=== PATIENT | female | born 1960 | race Caucasian/White ===

== ENCOUNTER 2016-05-22 09:19 | Emergency (ER) | payer BC ==
[2016-05-22 09:52] VITALS: BP 131/52
--- NOTE | 2016-05-22 10:24 | UC ---
Respiratory Complaint HPI - HPI Summary HPI Summary: Patient has had sinus congestion for the past month, she continues to have sinus pressure and now her chest feels congested and she has a cough - History of Current Complaint Chief Complaint: UCRespiratory Stated Complaint: FLU SYMPTOMS Time Seen by Provider: 05/22/16 09:43 Hx Obtained From: Patient Hx Last Menstrual Period: 01/23/13 ?: No Onset/Duration: Sudden Onset, Lasting Weeks Timing: Constant Severity Initially: Mild Severity Currently: Moderate Character: Cough: Productive Aggravating Factors: Exertion, Deep Breaths, Recumbent Position Alleviating Factors: Nothing Associated Signs And Symptoms: Positive: Fever, Chills, Wheezing, URI, Nasal Congestion, Sinus Discomfort - Risk Factors Pulmonary Embolism Risk Factors: Negative Cardiac Risk Factors: Negative Pseudomonas Risk Factors: Negative Tuberculosis Risk Factors: Negative - Allergies/Home Medications Allergies/Adverse Reactions: Allergies Allergy/AdvReac Type Severity Reaction Status Date / Time Iodine Allergy Severe Anaphylatic Verified 05/22/16 09:42 Shock Shrimp Flavor Allergy Severe Hives/Diff. Verified 05/22/16 09:42 Breathing/I tching Home Medications: Home Medications Calcium Carbonate-Cholecalcife [Calcium 500 +D 500-400 mg-Unit] 1 tab PO DAILY 05/22/16 [History Confirmed 05/22/16] Cyanocobalamin TAB* [Vitamin B12 TAB*] 500 mcg PO DAILY 05/22/16 [History Confirmed 05/22/16] Docusate CAP* [Colace Cap*] 100 mg PO BID 05/22/16 [History Confirmed 05/22/16] PMH/Surg Hx/FS Hx/Imm Hx Previously Healthy: Yes Endocrine History Of: Reports: Diabetes Cardiovascular History Of: Reports: Hypertension Respiratory History Of: Reports: Asthma Psychological History Of: Reports: Depression - Surgical History Surgical History: Yes Surgery Procedure, Year, and Place: Tonsillectomy. X2. bariatric surgery- - Family History Known Family History: Positive: Cardiac Disease, Hypertension - Social History Alcohol Use: None Substance Use Type: None Smoking Status (MU): Former Smoker When Did the Patient Quit Smoking/Using Tobacco: 04/26/2004 - Immunization History Most Recent Tetanus Shot: WITHIN 7 YEARS Review of Systems Constitutional: Fever, Chills, Fatigue Skin: Negative Eyes: Negative ENT: Sore Throat, Ear Ache, Nasal Discharge Respiratory: Shortness Of Breath, Cough Cardiovascular: Negative Gastrointestinal: Negative Genitourinary: Negative Motor: Negative Neurovascular: Negative Musculoskeletal: Negative Neurological: Negative Psychological: Negative All Other Systems Reviewed And Are Negative: Yes Physical Exam Triage Information Reviewed: Yes Appearance: Well-Nourished, Ill-Appearing, Pain Distress Vital Signs: Initial Vital Signs Temp 97.5 F 05/22/16 09:48 Pulse 73 05/22/16 09:48 Resp 20 05/22/16 09:48 BP 131/52 05/22/16 09:48 Pulse Ox 96 05/22/16 09:48 Vital Signs Reviewed: Yes Eye Exam: Normal Eyes: Positive: Conjunctiva Clear ENT: Positive: Pharyngeal erythema, Nasal congestion, Nasal drainage, TM bulging Dental Exam: Normal Neck exam: Normal Neck: Positive: Supple, Nontender, No Lymphadenopathy Respiratory: Positive: Chest non-tender, No respiratory distress, No accessory muscle use, Decreased breath sounds, Wheezing, Inspiration Cardiovascular Exam: Normal Cardiovascular: Positive: RRR, No Murmur, Pulses Normal Abdominal Exam: Normal Abdomen Description: Positive: Nontender, No Organomegaly, Soft Bowel Sounds: Positive: Present Musculoskeletal Exam: Normal Musculoskeletal: Positive: Strength Intact, ROM Intact, No Edema Neurological Exam: Normal Neurological: Positive: Alert, Muscle Tone Normal Psychological Exam: Normal Skin Exam: Normal UC Diagnostic Evaluation - Laboratory O2 Sat by Pulse Oximetry: 96 Respiratory Course/Dx - Course Course Of Treatment: hx obtained, exam performed, meds reviewed rapid flu obtained, treated for sinusitis and bronchitis - Differential Dx/Diagnosis Differential Diagnosis/HQI/PQRI: Aspiration, Asthma, Bronchitis, Influenza, Laryngitis, Sinusitis Provider Diagnoses: sinusitis. bronchitis Discharge - Discharge Plan Condition: Stable Disposition: HOME Patient Education Materials: Sinusitis (ED) Additional Instructions: 1. take the medication as prescribed. 2. Increase fluid intake and get rest 3. Follow up with any worsening symtpoms.
== END 2016-05-22 11:01 | disposition home or self-care (01) ==
LOC: UCCORT 09:19
DX: J32.9 Chronic sinusitis, unspecified (principal); J40 Bronchitis, not specified as acute or chronic; E11.9 Type 2 diabetes mellitus without complications; I10 Essential (primary) hypertension; F32.9 Major depressive disorder, single episode, unspecified; Z98.84 Bariatric surgery status; Z87.891 Personal history of nicotine dependence
CPT/HCPCS: 87502; 99212; G0463

== ENCOUNTER 2017-08-26 17:43 | Emergency (ER) | payer BC ==
[2017-08-26 18:05] VITALS: BP 125/63
--- NOTE | 2017-08-26 18:32 | UC ---
UC General HPI - HPI Summary HPI Summary: Patient presents complaining of episodic "stomach pains for the past 3-4 days in her left side. She describes the pain as sharp. She states that she's had prior history of kidney stones and felt that this might be similar. Nothing specifically makes her pain any better or any worse. She denies any associated nausea, vomiting, diarrhea or fever. She denies any dysuria or hematuria. Past surgical history includes tubal ligation and gastric bypass. Gastric bypass was done 3 years ago and [place]. - History of Current Complaint Chief Complaint: UCGU Stated Complaint: LEFT SIDE ABD PAIN Time Seen by Provider: 08/26/17 18:19 Hx Obtained From: Patient, Family/[employer] Hx Last Menstrual Period: 04/06 Pain Intensity: 7 Associated Signs & Symptoms: Positive: Abdominal Pain. Negative: Diarrhea, Dysuria, Fever, Nausea, Vomiting - Allergy/Home Medications Allergies/Adverse Reactions: Allergies Allergy/AdvReac Type Severity Reaction Status Date / Time Iodinated Contrast- Oral and Allergy Hives/Diff. Verified 08/26/17 17:59 IV Dye Breathing/I tching iodine Allergy Hives/Diff. Verified 08/26/17 17:59 Breathing/I tching NSAIDS (Non-Steroidal Allergy GI Upset Verified 08/26/17 17:59 Anti-Inflamma shrimp Allergy Hives/Diff. Verified 08/26/17 17:59 Breathing/I tching Home Medications: Home Medications Metformin HCl [Metformin HCl ER] 1,000 mg PO BID 08/26/17 [History Confirmed 12/04] Sitagliptin Phosphate [Januvia] 25 mg PO DAILY 08/26/17 [History Confirmed 08/26] PMH/Surg Hx/FS Hx/Imm Hx Endocrine History: Diabetes Cardiovascular History: Hypertension - Surgical History Surgical History: Yes Surgery Procedure, Year, and Place: Tonsillectomy. X2. bariatric surgery- [facility] - Family History Known Family History: Positive: Cardiac Disease, Hypertension - Social History Lives: With Family Alcohol Use: None Substance Use Type: None Smoking Status (MU): Former Smoker When Did the Patient Quit Smoking/Using Tobacco: 04/26/2004 - Immunization History Most Recent Tetanus Shot: WITHIN 7 YEARS Vaccination Up to Date: Yes Review of Systems Constitutional: Negative Skin: Negative Eyes: Negative ENT: Negative Respiratory: Negative Cardiovascular: Negative Gastrointestinal: Abdominal Pain Genitourinary: Negative Motor: Negative Neurovascular: Negative Musculoskeletal: Negative Neurological: Negative Psychological: Negative Is Patient Immunocompromised?: No All Other Systems Reviewed And Are Negative: Yes Physical Exam Triage Information Reviewed: Yes Appearance: Well-Appearing Vital Signs: Initial Vital Signs Temp 97.5 F 08/26/17 17:53 Pulse 59 08/26/17 17:53 Resp 15 08/26/17 17:53 BP 125/63 08/26/17 17:53 Pulse Ox 97 08/26/17 17:53 Vital Signs Reviewed: Yes Eyes: Positive: Conjunctiva Clear ENT: Positive: Normal ENT inspection Neck: Positive: Supple, Nontender, No Lymphadenopathy Respiratory: Positive: Lungs clear, Normal breath sounds Cardiovascular: Positive: RRR, No Murmur Abdomen Description: Positive: Other: - Postop scars appreciated. Hypoactive bowel sounds. Soft. Patient is exquisitely tender over her left mid abdomen over postop scar with guarding and rebound. No overt hernia, mass, hepatosplenomegaly or CVA tenderness. Musculoskeletal: Positive: ROM Intact Neurological: Positive: Alert Psychological: Positive: Age Appropriate Behavior Skin Exam: Normal Diagnostics - Laboratory Diagnostic Studies Completed/Ordered: hcg=neg. u/a=trace leukocytes, nitrites and glucose. culture pending. Course/Dx - Course Course Of Treatment: not c/w uti. requires ER evaluation. differential includes renal colic, diverticular/bowel pathology, hernia given pain over scar. pt agrees to transfer and driving pt from here. Report called to Dr Mckenzie at [facility] ER. advised of 3-4 day hx L sided abdominal pain and very tender on exam. coming via car. - Differential Dx - Multi-Symptom Provider Diagnoses: L sided abdominal pain Discharge - Sign-Out/Discharge Documenting (check all that apply): Patient Departure - Discharge Plan Condition: Stable Disposition: TRANS HIGHER LVL OF CARE FAC Referrals: Anna Lee MD [Primary Care Provider] - Additional Instructions: LEAVE HERE AND GO DIRECTLY TO THE [facility] ER DISCUSSED. DO NOT EAT OR DRINK. - Billing Disposition and Condition Condition: STABLE Disposition: Trans Higher Lvl of Care Fac
== END 2017-08-26 18:43 | disposition short-term general hospital (02) ==
LOC: UCCORT 17:43
DX: R10.9 Unspecified abdominal pain (principal); Z32.02 Encounter for pregnancy test, result negative; Z87.442 Personal history of urinary calculi; E11.9 Type 2 diabetes mellitus without complications; Z79.84 Long term (current) use of oral hypoglycemic drugs; I10 Essential (primary) hypertension; Z98.84 Bariatric surgery status; Z88.8 Allergy status to other drugs, medicaments and biological substances; Z88.6 Allergy status to analgesic agent; Z88.3 Allergy status to other anti-infective agents; Z91.041 Radiographic dye allergy status; Z91.013 Allergy to seafood; Z82.49 Family history of ischemic heart disease and other diseases of the circulatory system; Z87.891 Personal history of nicotine dependence
CPT/HCPCS: 81003; 84702; 87077; 87086; 87186; 99212; G0463

== ENCOUNTER 2018-11-19 12:21 | Observation (INO) | payer OTHER, BC ==
--- NOTE | 2018-11-19 12:45 | ED ---
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 Patient states that she was sitting at the computer at work typing up notes when everything started to "melt," and became "wormy, wavey, cloudy, fuzzy." Patient states she stood up, and almost fell. Patient states that she had her coworker measure her blood sugar which was normal. Patient states that later, she was looking at some clouds painted on the wall and she thought that they were moving. Patient was referred to the ED by Dr. Parmar for evaluation of possible stroke. Patient denies seeing a curtain moving across her vision, visual hallucinations. Patient states she sees dark spots in her vision and cannot see out of her peripheral vision. She denies slurred speech, facial droop. Patient reports dizziness which is aggravated by sitting up. Patient states that the room is not spinning, that she feels as if she is spinning, and that she doesn't feel like she will pass out. She reports headache located in the back of her head, initially rated 2/10 in severity, with onset while she was sitting in the ambulance. Patient states that when she lay flat, the headache moved to her temples. Patient states that the headache has now resolved , she has no pain, rated 0/10 in severity currently. Patient denies pain currently. The patient rates the pain 0/10 in severity. Patient denies chest pain, shortness of breath, ear ache, sore throat, nausea. Symptoms aggravated by sitting up. Symptoms alleviated by nothing. Patient states she has hx migraine but her symptoms today are not similar to a migraine. Patient states her migraines usually are severe, happens randomly, described as pressure in her temples and behind her eyes. Patient states she usually take Excedrin, ibuprofen, Tylenol, and sleeps it off. Patient states she has never been to the ED or seen a neurologist for her migraines. Denies PMHX atrial fibrillation, artery blockage, TIA, CVA, AK, angina, vertigo. No recent upper respiratory infections. Patient states she is not taking aspirin. Denies Fhx aneurysm. FHx: aunt in bathroom from stroke, migraines in aunts and mother. Vital signs while in room: HR 60 bpm, BP 113/57, O2 sat 96% Home Medications Medication Instructions Recorded Confirmed Type Citalopram TAB* [Celexa TAB*] 40 mg PO DAILY 01/01/12 11/19/18 History Multivitamin [Multivitamins] 1 cap PO DAILY 02/21/12 11/19/18 History Pregabalin [Lyrica] 50 - 100 mg PO TID 07/28/12 11/19/18 History Cyanocobalamin TAB* [Vitamin B12 500 mcg PO DAILY 05/22/16 11/19/18 History TAB*] Metformin HCl [Metformin HCl ER] 1,000 mg PO BID 08/26/17 11/19/18 History Albuterol HFA INHALER* [Ventolin 2 puff INH Q6H PRN 11/19/18 11/19/18 History HFA Inhaler*] Albuterol inh POWDER (NF) [Proair 2 puff INH QID 11/19/18 11/19/18 History Respiclick] Ascorbic Acid TAB* [Vitamin C 100 mg PO DAILY 11/19/18 11/19/18 History TAB*] Atorvastatin* [Lipitor*] 20 mg PO DAILY 11/19/18 11/19/18 History Biotin 10 mg PO DAILY 11/19/18 11/19/18 History Calcium Carbonate [Calcium] 1,500 mg PO DAILY 11/19/18 11/19/18 History Docusate CAP* [Colace Cap*] 100 mg PO DAILY 11/19/18 11/19/18 History Dulaglutide (NF) [Trulicity (NF)] 0.75 mg SUBCUT WEEKLY 11/19/18 11/19/18 History Empaglifozin (NF) [Jardiance (Nf)] 25 mg PO DAILY 11/19/18 11/19/18 History Ferrous Sulfate TAB* 325 mg PO DAILY 11/19/18 11/19/18 History Lisinopril TAB* [Prinivil TAB*] 5 mg PO DAILY 11/19/18 11/19/18 History Omeprazole CAP (NF) [Prilosec CAP* 20 mg PO BID 11/19/18 11/19/18 History 20 MG] Vitamin E CAP* 1,000 unit PO BEDTIME 11/19/18 11/19/18 History buPROPion SR TAB* [Wellbutrin SR 100 mg PO DAILY 11/19/18 11/19/18 History TAB*] - History of Current Complaint Stated Complaint: DIZZINESS/VISION PROBLEMS PER EMS Hx Obtained From: Patient, EMS, Other: - Dr. Parmar Onset/Duration: Sudden Onset, Started hours ago - 10:30 today 11/19/18, Still Present Timing: Constant Onset Severity: Mild - in ambulance, rated a 2, not with onset of dizziness and visual sxs Current Severity: None Pain Scale Used: 0-10 Numeric Character: Lightheaded, Dizzy, Visual Changes Aggravating: Position Change/Supine to Erect Alleviating: Nothing Associated Signs and Symptoms: Positive: Visual Changes, Headache, Dizziness, Lightheadness TPA Considered: No - low NIH - Allergy/Home Medications Allergies/Adverse Reactions: Allergies Allergy/AdvReac Type Severity Reaction Status Date / Time Iodinated Contrast Media Allergy Hives/Diff. Verified 11/19/18 12:46 [Iodinated Contrast- Oral Breathing/I and IV Dye] tching iodine Allergy Hives/Diff. Verified 11/19/18 12:46 Breathing/I tching NSAIDS (Non-Steroidal Allergy GI Upset Verified 11/19/18 12:46 Anti-Inflamma shrimp Allergy Hives/Diff. Verified 11/19/18 12:46 Breathing/I tching Home Medications: Home Medications Ascorbic Acid TAB* [Vitamin C TAB*] 100 mg PO DAILY 11/19/18 [History Confirmed 11/19/18] Atorvastatin* [Lipitor 20 MG*] 20 mg PO DAILY 11/19/18 [History Confirmed ] Calcium Carbonate [Calcium] 1,500 mg PO DAILY 11/19/18 [History Confirmed ] Docusate CAP* [Colace Cap*] 100 mg PO DAILY 11/19/18 [History Confirmed 11/19/18 ] Dulaglutide (NF) [Trulicity (NF)] 0.75 mg SUBCUT WEEKLY 11/19/18 [History Confirmed 11/19/18] Empaglifozin (NF) [Jardiance (Nf)] 25 mg PO DAILY 11/19/18 [History Confirmed ] Ferrous Sulfate TAB* 325 mg PO DAILY 11/19/18 [History Confirmed 11/19/18] Omeprazole CAP (NF) [Prilosec CAP* 20 MG] 20 mg PO BID 11/19/18 [History Confirmed 11/19/18] Vitamin E CAP* 1,000 unit PO BEDTIME 11/19/18 [History Confirmed 11/19/18] buPROPion SR TAB* [Wellbutrin SR TAB*] 100 mg PO DAILY 11/19/18 [History Confirmed 11/19/18] PMH/Surg Hx/FS Hx/Imm Hx Previously Healthy: No Endocrine/Hematology History: Reports: Hx Diabetes - TYPE 2, Hx Anemia Cardiovascular History: Reports: Hx Hypercholesterolemia, Hx Hypertension Respiratory History: Reports: Hx Seasonal Allergies, Hx Sleep Apnea - current CPAP user, Other Respiratory Problems/Disorders - smoker Musculoskeletal History: Reports: Hx Back Problems, Other Musculoskeletal History - joint pain d/t obesity Sensory History: Reports: Hx Contacts or Glasses Opthamlomology History: Reports: Hx Contacts or Glasses Neurological History: Reports: Hx Migraine, Hx Peripheral Neuropathy Psychiatric History: Reports: Hx Depression - Surgical History Surgical History: Yes Surgery Procedure, Year, and Place: Tonsillectomy. X2. bariatric surgery- [facility] Infectious Disease History: No - Family History Known Family History: Positive: Cardiac Disease, Hypertension, Other - stroke in aunt, who in bathroom; migraines in mother and aunt - Social History Occupation: Employed Full-time Alcohol Use: Rare Alcohol Amount: 1-2 drinks per year Substance Use Type: Reports: None Hx Tobacco Use: Yes Smoking Status (MU): Former Smoker Review of Systems Constitutional: Negative Eyes: Negative - seeing a curtain moving across her vision Positive: Blurred Vision, Other - visual changes, unable to see out of peripheral vision, seeing dark spots in her vision Negative: Sore Throat, Ear Ache Negative: Chest Pain Negative: Shortness Of Breath Negative: Nausea Positive: no symptoms reported Skin: Negative Neurological: Negative - facial droop, Other - Dizziness Positive: Headache - resolved . Negative: Slurred Speech Positive: Other - NEG: visual hallucinations All Other Systems Reviewed And Are Negative: Yes Physical Exam - Summary Physical Exam Summary: Appearance: Well-appearing, no acute pain distress, obese Skin: Warm, color reflects adequate perfusion, dry Head: Normal Head/Face inspection, atraumatic Eyes: Conjunctiva clear, PERRL, EOMI, no nystagmus ENT: Normal inspection, TMs clear bilaterally, pharynx clear Neck: Supple, no nodes, no JVD, no bruits Respiratory: Lungs clear, normal breath sounds, no respiratory distress Cardio: RRR, No murmur, pulses normal, brisk capillary refill Abdomen: Soft, nontender Bowel sounds: Present Musculoskeletal: Strength Intact/ROM intact, no calf tenderness, no edema. Psychological: Normal Neuro: A&O x3, CN II-XII intact, motor function 5/5, sensation intact, cerebellar normal per heel to sharpe, patient c/o spinning when she sits up, patient states black spots in vision in right eye with confrontation testing, visual tan normal by confrontation testing, no double vision in either eye separately or both eyes together GCS: 15 Triage Information Reviewed: Yes Vital Signs Reviewed: Yes Procedures - Sedation Patient Received Moderate/Deep Sedation with Procedure: No Diagnostics - Laboratory Result Diagrams: 11/19/18 13:05 11/20/18 05:13 Lab Statement: Any lab studies that have been ordered have been reviewed, and results considered in the medical decision making process. - Radiology Chest x-ray Radiology Interpretation Completed By: Radiologist Summary of Radiographic Findings: LOW LUNG VOLUMES. ED physician has reivewed this report. - CT Brain CT Interpretation Completed By: Radiologist Summary of CT Findings: NO EVIDENCE FOR ACUTE INTRACRANIAL ABNORMALITY. ED physician has reviewed this report. - EKG 1318 Cardiac Rate: NL - 60 BPM EKG Rhythm: Sinus Rhythm ST Segment: Non-Specific Ectopy: None EKG Comparison: Other - no prior to compare Summary of EKG Findings: An EKG at 13:18 reveals sinus rhythm, first degree AV block (201), nml IV CT, nml QTc, and axis (-3). No acute changes. No prior EKG to compare. ED MD has reviewed and interpreted this EKG. NIH Scale - NIH Scale Level of Consciousness: Alert/Keenly Responsive Ask Patient the Month and His/Her Age: Both Correct Ask Pt to Open/Close Eyes and Car Lubricator/Release Non-Paretic Hand: Both Correctly Best Gaze (Only Horizontal Eye Movement): Normal Visual Field Testing: No Visual Loss Facial Paresis-Pt to Smile & Close Eyes or Grimace Symmetry: Normal/Symmetrical Motor Function - Right Arm: No Drift-Holds 10 Seconds Motor Function - Left Arm: No Drift-Holds 10 Seconds Motor Function - Right Leg: No Drift-Holds 10 Seconds Motor Function - Left Leg: No Drift-Holds 10 Seconds Limb Ataxia-Must be out of Proportion to Weakness Present: Absent Sensory (Use Pinprick to Test Arms/Legs/Trunk/Face): Normal Best Language (Describe Picture, Name Items): No Aphasia Dysarthria (Read Several Words): Normal Extinction and Inattention: No Abnormality Total Score: 0 Re-Evaluation - Re-Evaluation First Eval Re-Evaluation Time: 13:55 Change: Unchanged Comment: Pt requests Excedrin for her TEJEDA per RN, Tika. Pt has ibuprofen listed as an allergy but only for GI upset. Will give 2 Excedrin tabs now. Second Eval Re-Evaluation Time: 14:14 Change: Unchanged Comment: patient informed of admission plan. 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 Upon exam, patient is well-appearing, in no acute pain distress, and obese. There are no bruits noted on her neck. Neuro exam: cerebellar normal per heel to sharpe, patient spinning when she sits up, patient states black spots in vision in right eye with confrontation testing, visual tan normal by confrontation testing, no double vision in either eye separately or both eyes together. Patient medications reviewed this visit. Nurses notes reviewed. Allergies noted. Spoke with Dr. Méndez, neurology, at 12 :47 who would like us to work her up and states he advises admission to hospitalist, and agrees to consult. Bloodwork results with no significant abnormalities except for Hgb 11.8, MCV 79, MCH 26, RDW 16, APTT 39.8, creatinine 0.5, glucose 134, alkaline phosphatase 122. Urinalysis results with no significant abnormalities except for leukocyte esterase 2+, WBC 1+, squamous epithelial cells, and glucose 3+. An EKG at 13:18 reveals sinus rhythm, first degree AV block (201), nml IV CT, nml QTc, and axis (-3). No acute changes. No prior EKG to compare. ED MD has reviewed and interpreted this EKG. CXR shows, per radiologist: LOW LUNG VOLUMES. ED MD has reviewed this report. CT Brain shows, per radiologist: NO EVIDENCE FOR ACUTE INTRACRANIAL ABNORMALITY. ED MD has reviewed this report. In the ED course, the patient was given 1 L normal saline fluids IV and Excedrin extra strength 2 tab [address] with Dr[address] Hung, hospitalist, at 14:12 who agrees to admit patient. The patient will be admitted to the hospitalist. The patient is agreeable with this plan. - Differential Dx Differential Diagnoses Neuro: Positive: Benign Paroxysmal Positional Vertigo, Cerebrovascular Accident, Headache, Labyrinthitis, Metabolic Abnormality, Migraine, Transient Ischemic Attack - Diagnoses Provider Diagnoses: Dizziness, Visual changes, Headache - Physician Notifications Discussed Care Of Patient With: Sue Méndez Time Discussed With Above Provider: 12:47 Instructed by Provider To: Other - Dr. Méndez, neurology, would like us to work her up and states he expects admission to hospitalist, and agrees to consult. Dr. Hung, hospitalist, agrees to admit patient at 14:12. Discharge ED - Sign-Out/Discharge Documenting (check all that apply): Patient Departure - Admit - Discharge Plan Condition: Stable Disposition: ADMITTED TO [facility] - Billing Disposition and Condition Condition: STABLE Disposition: Admitted to [facility] - Attestation Statements Document Initiated by Scribe: Yes Documenting Scribe: Morena Solorzano Provider For Whom Ashly is Documenting (Include Credential): Siria Fish MD Scribe Attestation: Morena Velez, scribed for Siria Fish MD on 12/14/18 at 1133. Scribe Documentation Reviewed: Yes Provider Attestation: The documentation as recorded by the scribMorena ramon accurately reflects the service I personally performed and the decisions made by me, Siria Fish MD Status of Scribe Document: Viewed
[2018-11-19] MEDS ORDERED: NS 0.9% 1000 ML** 1,000 ML IV ONE (12:46)
[2018-11-19 13:12] LABS: ABS Basophils 0.1 10^3/ul (0-0.2); ABS Eosinophils 0.2 10^3/ul (0-0.6); ABS Lymphocytes 2.4 10^3/ul (1.0-4.8); ABS Monocytes 0.7 10^3/ul (0-0.8); ABS Neutrophils 3.3 10^3/ul (1.5-7.7); Eosinophil % 2.9 %; Hematocrit 36 % (35-47); Hemoglobin 11.8 g/dL (12.0-16.0); Lymphocyte % 35.9 %; Mean Corpuscular HGB Conc 33 g/dL (31-36); Mean Corpuscular Hemoglobin 26 pg (27-31); Mean Corpuscular Volume 79 fL (80-97); Mean Platelet Volume 7.8 fL (7.4-10.4); Platelet Count 219 10^3/uL (150-450); Red Blood Count 4.64 10^6 /uL (3.70-4.87); Red Cell Distribution Width 16 % (10-15); White Blood Count 6.8 10^3/uL (3.5-10.8)
[2018-11-19 13:22] LABS: Urine Appearance Cloudy; Urine Color Yellow; Urine Ketones Negative (Negative); Urine Protein Negative (Negative); Urine Urobilinogen Negative (Negative)
[2018-11-19 13:23] LABS: Urine Bilirubin Negative (Negative); Urine Blood Negative (Negative); Urine Glucose 3+(>=500 mg/dL) (Negative); Urine Nitrite Negative (Negative)
[2018-11-19 13:25] LABS: Activated Partial Thrombo Time 39.8 seconds (26.0-38.0); INR 0.99 (0.82-1.09)
[2018-11-19 13:34] LABS: Albumin 4.4 g/dL (3.2-5.2); Albumin/Globulin Ratio 1.6 (1-3); Calcium 9.6 mg/dL (8.6-10.3); EGFR African American 154.4 (>60); EGFR Non-African American 127.6 (>60); Globulin 2.8 g/dL (2-4); HDL Cholesterol 38.7 mg/dL; Potassium 3.8 mmol/L (3.5-5.0); Total Bilirubin 0.3 mg/dL (0.2-1.0); Total Protein 7.2 g/dL (6.4-8.9)
[2018-11-19 13:54] LABS: Urine Squamous Epithelial Cell Present (Absent); Urine White Blood Cell 1+(6-10/hpf) (Absent)
[2018-11-19] MEDS ORDERED: ASA-APAP-CAFFEINE ES (NF) 1 TAB TAB PO ONE (13:57)
[2018-11-19] MEDS ORDERED: Acetaminophen TAB* 325 MG PO PRN (16:30)
[2018-11-19 16:41] LABS: TSH (Thyroid Stimulating Horm) 0.63 mcIU/mL (0.34-5.60)
[2018-11-19] MEDS ORDERED: Dextrose 50% VIAL 50 ml IV PUSH PRN (16:51)
[2018-11-19 17:56] LABS: Vitamin D Total 25(OH) 48.6 ng/mL (20-50)
[2018-11-19] MEDS ORDERED: Enoxaparin(*) 40 MG/0.4 ML SYR SUBCUT SCH (18:00)
[2018-11-19] MEDS: Insulin LISPRO* 1 UNITS UNIT SUBCUT SCH ×2 (18:17→22:29)
--- NOTE | 2018-11-19 20:46 | CONS ---
NEUROLOGY CONSULTATION NOTE: DATE OF CONSULT: 11/19/18 CONSULTING PROVIDER: Dr. Fish. REASON FOR CONSULT: Headaches and trouble with visual obscuration. CHIEF COMPLAINT: Headaches. HISTORY OF PRESENT ILLNESS: Ms. 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 with a recommendation of [facility] physician that she works with. The patient apparently was at work sitting in front of the computer . She got up and roomed a patient. She took the patient's vitals. She came back, sat on a chair whe n suddenly she started developing some bizarre symptoms. Her screen looks like it was melting and it is wavy. She felt dizzy. She felt generalized fatigue. She could not stand. She had her blood stanford gar checked and it was 151. She was taken to a room and laid down where there are artificial clouds on the ceiling. She thought the clouds were moving while she was lying in bed. She did have a headac he. The headache is mostly in the posterior region. The headache is currently 2/10 in severity. Sh yenny had associated symptoms of photophobia and nausea. She typically has a few headaches a month. She used to have migraine headaches as a teenager. Valsalva like maneuvers such as straining, coughing, or sneezing do not exacerbate the pain. The patient's symptoms started at 10:30 a.m. She felt compl etely normal at 10:29 a.m. NIH Stroke Scale currently is 0. The patient also has severe constipation. She has not had a bowel movement for 4 days. Also, please note that the patient had similar symptoms in the past when she was started on lisinopril. She rece ntly restarted lisinopril a few days ago. PAST MEDICAL HISTORY: Diabetes mellitus; hypertension; dyslipidemia; anemia; seasonal asthma; obstru ctive sleep apnea, on CPAP nightly; neuropathy; migraine headache. PAST SURGICAL HISTORY: Tonsillectomy, childbirth, Kirit-en-Y and does take vitamins regularly. HOME M EDICATIONS: 1. Citalopram 40 mg daily. 2. Multivitamins 1 cap p.o. daily. 3. Pregabalin 50-100 mg p.o. t.i.d. 4. Cyanocobalamin 500 mcg p.o. daily. 5. Metformin 1000 mg p.o. b.i.d. 6. Ferrous sulfate 325 mg daily. 7. Ascorbic acid 100 mg p.o. daily. 8. Empagliflozin 25 mg p.o. daily. 9. Atorvastatin 20 mg p.o. daily. 10. Bupropion 100 mg p.o. daily. 11. Lisinopril 5 mg p.o. daily. 12. Albuterol 2 puffs inhale 4 times daily. 13. Omeprazole 20 mg p.o. b.i.d. 14. Albuterol 2 puffs inhale q.6 hours as needed. 15. Docusate 100 mg p.o. daily. 16. Biotin 10 mg p.o. daily. 17. Dulaglutide 0.75 mg subcu weekly. ALLERGIES: IODINATED CONTRAST. FAMILY HISTORY: Her father of complications related to diabetes. Her mother had TIA to the pablo k of the eye and they found fluid behind her mother's eye. Her sister suffered from seizures. 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 She is a former smoker. She smoked for 25 years about 1-1/2 to 2 packs per day. She quit in 2009 due to shortness of breath and developing pneumonia. She does not consume alcohol. REVIEW OF SYSTEMS: A 14-point review of systems was obtained and otherwise negative except for what was mentioned in the HPI. PHYSICAL EXAM: Vitals: Temperature is 97, heart rate is 53 and it went as low as 51, respirations o f 15, oxygen saturation of 97%, blood pressure of 139/85. General: Well-nourished, well-developed, o bese female, in no acute distress. Head is atraumatic, normocephalic without any obvious abnormality . Neck is supple and symmetric. Eyes: Conjunctivae/corneas are clear. Cardiovascular: Regular ra te and rhythm with normal S1, S2. Respiratory: Clear to auscultation bilaterally. Extremities: Nor mal range of motion with no cyanosis. No hammertoes or edema. Skin: No skin lesions or lacerations. Psych: Affect is broad, normal mood. Easy to establish rapport. Neurological Examination: Menta l Status: Awake, alert, and oriented to person, place, time, and general circumstances. Language an d fluency were assessed and found to be normal. Cranial Nerves: Pupils are equal, round, and reacti ve to light. Extraocular muscles are intact. There is normal sensation in the face bilaterally. No facial asymmetry. Tongue is symmetrical and midline with no atrophy or fasciculation. Motor Examin ation: 5/5 strength in the upper and lower extremities symmetrically bilaterally. There is normal b ulk and tone throughout. Sensation is intact to light touch and pinprick throughout. Reflexes 2+ in the biceps, brachioradialis, triceps, and knees bilaterally; 1+ at the ankles. Downgoing plantar re sponses. Coordination to [id number] and heel-to- sharpe testing is normal bilaterally. Gait: Nor mal stance. No ataxia. DIAGNOSTIC STUDIES/LAB DATA: WBC of 6.8, hemoglobin of 11, hematocrit of 36, platelet count of 219. Sodium of 140, potassium 3.8, creatinine 0.5, lactic acid 1.6. Urinalysis showed no evidence of pyu kraig. CT of the head without contrast was personally reviewed. There is no evidence of any acute intracran ial abnormality. ASSESSMENT: Ms. Danay Perez is a 58-year-old female who has history of hypertension, dyslipidem ia, obstructive sleep apnea, diabetes mellitus, who presented with nonspecific symptoms of sudden ons et dizziness, headaches, generalized fatigue that seemed to have slowly improved. Currently, she is complaining of a 2/10 headache that is associated with photophobia and nausea. The patient has histo ry of migraine headache. This is not the worst headache of her life. On neurological examination, her NIH Stroke Scale is 0. She has no lateralized neurological deficits . I suspect this is a complicated migraine; however, given her risk factors, it is reasonable to rule o ut any possible small embolic stroke to the brainstem. I highly doubt that this is a diagnosis. The patient could also be having some medication reaction or side effects as she has had similar present ation in the past when she was taking lisinopril. Other metabolic cause such as vitamin B12 deficien cy should be considered. RECOMMENDATIONS: Please obtain an MRI of the brain, MRA head, and MRA neck all without contrast. Pl ease obtain an ESR, vitamin B12, and TSH levels. Admit under the hospitalist service. Start the pat ient on aspirin 81 mg daily. She is already on statin therapy. Her LDL level is 47, so need to acce lerate or increase the dose of statin therapy. Neuro checks every 4 hours. No need for PT, OT or SL P evaluation and treatment since the patient is asymptomatic. Please do a dysphagia screen at [facility]. No need for transthoracic echo, again because the differential for stroke is extremely low here. DVT prophylaxis with SCDs. I will continue to follow. [id number]/[facility] #: [id number]
[2018-11-19] MEDS ORDERED: Pregabalin CAP(*) 100 MG PO SCH (21:00)
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
[2018-11-19] MEDS ORDERED: Vitamin E CAP* 200 UNITS PO SCH (22:00)
[2018-11-20 05:57] LABS: BUN/Creatinine Ratio 18.6 (8-20); Calcium 9.2 mg/dL (8.6-10.3); EGFR African American 127.6 (>60); EGFR Non-African American 105.4 (>60); Potassium 4.2 mmol/L (3.5-5.0)
[2018-11-20] MEDS: Insulin LISPRO* 1 UNITS UNIT SUBCUT SCH ×2 (07:52→12:42)
[2018-11-20] MEDS: Pregabalin CAP(*) 50 MG PO SCH ×2 (08:17→14:25)
[2018-11-20] MEDS ORDERED: buPROPion SR TAB.SR* 100 MG PO SCH (09:00)
[2018-11-20] MEDS ORDERED: Docusate CAP* 100 MG PO SCH (09:00)
[2018-11-20] MEDS ORDERED: Atorvastatin* 20 MG TAB PO SCH (09:00)
[2018-11-20] MEDS ORDERED: Ferrous Sulfate TAB* 325 MG PO SCH (09:00)
[2018-11-20] MEDS ORDERED: Citalopram TAB* 40 MG PO SCH (09:00)
[2018-11-20] MEDS ORDERED: [UNRECOGNIZED DRUG - OTHER] PO SCH ×2 (09:00→21:00)
[2018-11-20] MEDS ORDERED: Pantoprazole TAB * 40 MG TAB PO SCH (09:00)
[2018-11-20] MEDS ORDERED: Cyanocobalamin TAB* 500 MCG PO SCH (09:00)
[2018-11-20] MEDS ORDERED: Calcium Carbonate TAB* 1250 MG (CALCIUM 500 MG) PO SCH (09:00)
[2018-11-20] MEDS ORDERED: EMPAGLIFLOZIN PO SCH ×2 (09:00→21:00)
[2018-11-20] MEDS: ASCORBIC ACID 100 MG PO SCH ×2 (09:50→10:50)
[2018-11-20 11:10] VITALS: BP 124/59
[2018-11-20] MEDS ORDERED: [UNRECOGNIZED DRUG - REMARK] PO SCH (12:00)
[2018-11-20] MEDS ORDERED: [UNRECOGNIZED DRUG - REMARK] PO ONE (12:00)
--- NOTE | 2018-11-20 16:43 | PN ---
Subjective Date of Service: 11/20/18 Length of Stay: 1 Days Neurology is following for the evaluation of headaches and constellation of neurological symptoms. Interval History: The headaches resolved today. She denied any numbness, visual disturbance, or focal weakness. She no longer has the abnormal visual disturbance. She is not nauseated. She had a bowel movement. The patient was found to have a UTI with cultures positive for K. Pneumonia. MRI brain, MRA head, and carotid ultrasound are all within normal parameters. Review of Systems: Denied CP, SOB, or palpitations. Objective Vital Signs 11/19/18 11/19/18 11/19/18 16:52 17:00 17:22 Temperature Pulse Rate 54 56 Respiratory 13 16 21 Rate Blood Pressure 145/66 140/74 (mmHg) O2 Sat by Pulse 97 98 Oximetry 11/19/18 11/19/18 11/19/18 17:52 18:37 22:29 Temperature 96.9 F Pulse Rate 65 Respiratory 16 18 Rate Blood Pressure 128/60 139/67 (mmHg) O2 Sat by Pulse 97 Oximetry 11/20/18 11/20/18 11/20/18 00:10 00:35 03:12 Temperature 98.2 F 97.5 F Pulse Rate 56 65 Respiratory 16 17 16 Rate Blood Pressure 118/56 147/54 (mmHg) O2 Sat by Pulse 97 98 Oximetry 11/20/18 11/20/18 11/20/18 07:48 07:52 08:00 Temperature 97.2 F Pulse Rate 58 66 Respiratory 20 16 Rate Blood Pressure 114/71 133/62 (mmHg) O2 Sat by Pulse Oximetry 11/20/18 11/20/18 11/20/18 08:17 10:12 10:49 Temperature Pulse Rate 67 Respiratory 18 18 Rate Blood Pressure 136/54 (mmHg) O2 Sat by Pulse Oximetry 11/20/18 11/20/18 11/20/18 11:06 11:09 14:25 Temperature 97 F 97.1 F Pulse Rate 81 59 Respiratory 20 20 16 Rate Blood Pressure 143/90 124/59 (mmHg) O2 Sat by Pulse 96 96 Oximetry Intake and Output Last 24 Hours 11/18/18 11/19/18 11/20/18 11/21/18 06:59 06:59 06:59 06:59 Intake Total 1240 560 Output Total 0 0 Balance 1240 560 Weight 256 lb 4.8 oz Intake: IV Fluids 1000 Oral 240 560 Output: Urine 0 0 Other: Estimated Void Medium Oxygen Devices in Use Now: None Neurology Exam: General: Well nourished, well developed, and in no acute distress HEENT: Normocephelic/atraumatic, sclera anicteric, mucous membranes moist Neck: Supple Chest: Clear to auscultation bilaterally Cardiovascular: Regular rate and rhythm without murmurs, rubs, gallops Extremities: No clubbing, cyanosis, or edema Neurological Findings: Awake, alert, and oriented to person, place, and time. Speech: fluent without dysarthria, repetition intact Cranial Nerve: PERRL, EOM intact, VFF, no nystagmus, face symmetric bilaterally , facial sensation intact, hearing intact to finger rub bilaterally, palate elevates symmetrically, tongue midline, SCM and Trapezius s/s. Motor: s/s throughout, proximal and distal extremities x4 tone/bulk normal Sensation: intact to LT/PP bilaterally upper and lower extremities Deep Tendon Reflex: 2+ symmetric in the upper/lower extremities, 1+ at the ankles. Babinski - down going Finger to nose, rapid alternating movements intact without tremor, no dysdiadochokinesia Gait: intact with good arm swing and stride Result Diagrams: 11/19/18 13:05 11/20/18 05:13 Microbiology and Other Data: Microbiology 11/19/18 13:00 Urine Culture - Preliminary Urine Klebsiella Pneumoniae Assessment/Plan Danay Borges is a 58-year-old female who has history of hypertension, dyslipidemia, KERRI, DMII, who presented to [facility] with dizziness, headache, generalized fatigue that has since improved. Her neurological examination was non-focal. She was found to have K. Pneumonia UTI. She was placed on antibiotic therapy and discharged home. Work-up for stroke was negative. The patient did not have a TIA or stroke based on the clinical history and examination finding. I do suspect she has migraine headaches that may have been contributing to some of her nonspecific symptoms yesterday. I encouraged her to take magnesium oxide 400 mg daily. This will help her headache and constipation. We will contact her for an outpatient hospital follow-up with neurology for the treatment of migraine, unless she no longer needs further outpatient follow-up with neurology post-discharge.
--- NOTE | 2018-11-20 21:30 | DS ---
AMENDED REPORT NOW INCLUDES DESIGNATED COSIGNER DISCHARGE SUMMARY: DATE OF ADMISSION: 11/19/18 DATE OF DISCHARGE: 11/20/18 PROVIDER: Dacia Mascorro NP. ATTENDING PHYSICIAN: Dr. Hung.* (DICTATED BY DACIA MASCORRO NP) PRIMARY CARE PHYSICIAN: Dr. Lee. CONSULTING PHYSICIAN: Dr. Méndez. PRIMARY DIAGNOSES: 1. Headaches. 2. Urinary tract infection. SECONDARY DIAGNOSES: 1. Diabetes. 2. Diabetic neuropathy. 3. Depression. 4. Hyperlipidemia. 5. Iron deficiency anemia. PROCEDURES: None. STUDIES: Bilateral carotid Doppler showed no hemodynamically significant stenosis of the right or left internal carotid artery. The head MRA showed no acute abnormalities. Brain MRI, no acute intracranial abnormalities. EKG showed sinus rhythm. Chest x-ray showed evidence of low lung volume. Brain CT showed no evidence for acute intracranial abnormalities. PERTINENT LAB DATA: As of 11/19/18, hemoglobin 11.8, MCV 79, MCH 26, RDW 16, APTT 39.8. Urine 2+ leukocyte esterase, 1+ wbc, squamous epithelial cells present. Urine glucose 3+. Microbiology of the urine showed Klebsiella pneumoniae. HISTORY OF PRESENT ILLNESS/HOSPITAL COURSE: This is a 58-year-old female with past medical history significant for hypertension, headache, and diabetes type 2 , who came to the emergency room on 11/19/18 after experiencing vision changes and dizziness, ruled out carotid occlusion, stroke, TIA, electrolyte abnormalities. The impression was that this was more related to a strong family history of headaches and migraines as well as being restarted on lisinopril 2 weeks prior, which had made her dizzy and lightheaded in the past, though the patient is to follow up with Dr. Méndez on an outpatient basis in 6 to 8 weeks. REVIEW OF SYSTEMS: An 11 point system review completed, negative for dizziness, lightheadedness, palpitations, chest pain, shortness of breath, abdominal pain, nausea/vomiting, or bowel/bladder issues. PHYSICAL EXAM: VITALS: 97.1F, 59HR, 20RR, 96% on room air, 124/59 GENERAL: Well groomed, well developed female seen laying in bed, no acute distress noted. EYES: Conjunctiva pink and moist, PERRLA, EOM intact. ENT: Oropharynx clear, mucous membranes moist. CARDIAC: S1S2, heart rate regular. No murmurs, gallops or rubs appreciated. PULMONARY: Lungs sounds clear throughout bilaterally on room air. ABDOMEN: Abdomen soft, non-tender, non-distended +BSx4. MUSCULOSKELETAL: No clubbing or cyanosis noted. Able to move all extremities. NEURO: No focal deficits appreciated. Able to move all extremities SKIN: No rashes or lesions noted. PSYCH: Alert and orientedx4. Thought content organized, no evidence of anxiety or depression. DISCHARGE PLAN: 1. Headaches. Again follow up with Dr. Méndez, may use Tylenol as needed for pain control. Discontinue lisinopril, felt that the patient is experiencing orthostatic hypotension secondary to this medication. 2. Diabetes. May continue Jardiance, Trulicity, and metformin at home. Carry on with consistent carb diet. 3. 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 Continue calcium carbonate, vitamin B12, vitamin E, and vitamin C. 4. Diabetic neuropathy. Continue Lyrica. 5. Iron deficiency anemia. Continue ferrous sulfate. 6. Depression. Continue citalopram and bupropion. 7. Hyperlipidemia. Continue atorvastatin. 8. Full code. CONTINUED HOME MEDICATION: 1. Ciprofloxicin 250mg PO Q12H x3 days 2. Ascorbic acid 100mg PO daily 3. Atorvastatin 20mg PO daily 4. Buproprion SR 100mg PO daily 5. Calcium carbonate 1500mg PO daily 6. Docusate 100mg PO daily 7. Trulicity 0.75mg PO weekly 8. Empaglifozin 25mg PO daily 9. Ferrous sulfate 325mg PO ever Friday, Friday, Friday 10. Metformin 1000mg PO BID 11. MVI 1 cap PO daily 12. Omeprazole 20mg PO BID 13. Pregabalin 50-100mg PO TID 14. Vitamin E 1000mg PO QHS DISPOSITION: Discharge to home. CONDITION: Stable. TIME SPENT: Time spent on the patient is about 40 minutes with more than of it spent [id number]. DACIA MASCORRO, AD OPERATIONS ASSOCIATE [id number]/[facility] #: [id number] UNITED HEALTH SERVICESCésar
--- NOTE | 2018-11-20 22:46 | EEG ---
ELECTROENCEPHALOGRAM REPORT: DATE OF STUDY: 11/20/18 LOCATION: The patient is an inpatient, room 442. REFERRING PROVIDER: Dr. Méndez. CLINICAL PROBLEM: Episode of visual change, followed by dizziness and fatigue. The patient subsequently had a headache. MEDICATIONS: Include: 1. Atorvastatin. 2. Humalog insulin. 3. Pregabalin. 4. Pantoprazole. 5. Citalopram. REPORT: This 19-channel EEG is remarkable for background rhythms consisting of a well-formed alpha rhythm in the occipital derivations at 9 cycles per second, which is symmetric and suppressed by eye opening. Lower voltage beta rhythms are seen bifrontally. There is an occasional wicket rhythm noted. Activation procedures were not attempted. The patient drowses and falls asleep, with vertex slowing and some sleep spindles seen parasagittally intermittently. There were no clinical events. There are no focal, lateralized, or epileptiform abnormalities. CLINICAL IMPRESSION: Normal awake and asleep EEG. [id number]/[facility] #: [id number] [facility]ENT[facility]ésar
== END 2018-11-20 15:57 | disposition home or self-care (01) ==
LOC: ED 12:21 → MEDTELE 16:30
PROVIDERS: ADMIT Hospitalist; ATTEND Hospitalist
DX: R51 Headache (principal); N39.0 Urinary tract infection, site not specified; K91.2 Postsurgical malabsorption, not elsewhere classified; K95.89 Other complications of other bariatric procedure; E09.40 Drug or chemical induced diabetes mellitus with neurological complications with diabetic neuropathy, unspecified; F32.9 Major depressive disorder, single episode, unspecified; E78.5 Hyperlipidemia, unspecified; D50.9 Iron deficiency anemia, unspecified; I10 Essential (primary) hypertension; K21.9 Gastro-esophageal reflux disease without esophagitis; R60.9 Edema, unspecified; J45.909 Unspecified asthma, uncomplicated; G47.30 Sleep apnea, unspecified; Z87.891 Personal history of nicotine dependence; Z79.899 Other long term (current) drug therapy
CPT/HCPCS: 36415; 70450; 70544; 70551; 71045; 80048; 80053; 80061; 81003; 81015; 82306; 82607; 83605; 84443; 84484; 85025; 85610; 85730; 87077; 87086; 87186; 93005; 93880; 95819; 96360; 96361; 99285; A9270-GY; G0378

== ENCOUNTER 2022-07-09 06:54 | Observation (INO) ==
[~2022-07-09 06:54] MED LIST: Buffered Lidocaine 1% SYRIN 1 ml INTRADERM ONE; Famotidine IV 10 MG/ML 2 ml VIAL (20 mg) IV ONE; Lactated Ringers 1000 ml BAG 1,000 ML IV SCH; ROPIVACAINE 5 MG/ML 30 ML BTL (0.5%) ONE
[2022-07-09] MEDS ORDERED: Famotidine IV 10 MG/ML 2 ml VIAL (20 mg) ONE (07:48)
[2022-07-09] MEDS ORDERED: ceFAZolin 2 GM PREMIX 2 GM/50 ML BAG ONE (07:48)
[2022-07-09 08:11] LABS: Rapid COVID-19 Molecular Undetected (Undetected)
[2022-07-09] MEDS ORDERED: fentaNYL 100 mcg/2 ml 50 MCG/ML VIAL ONE ×4 (08:28→15:29)
[2022-07-09] MEDS ORDERED: Midazolam 2 mg/2 ml VIAL 1 mg/ml 2 ml VIAL (2 mg) ONE (08:28)
[2022-07-09] MEDS ORDERED: Propofol 0 MG/0 ML BTL ONE (08:29)
[2022-07-09] MEDS ORDERED: Lidocaine 2% PF 5 ML VIAL ONE ×2 (08:31→14:57)
[2022-07-09] MEDS ORDERED: Rocuronium 50 mg VIAL 10 mg/ml 5 ml VIAL (50 mg) ONE ×2 (10:25→11:39)
[2022-07-09] MEDS ORDERED: Propofol 10 MG/ML 20 ML BTL ONE (10:26)
[2022-07-09] MEDS ORDERED: Naloxone 0.4 mg VIAL 0.4 mg/ml 1 ml VIAL IV PRN (11:25)
[2022-07-09] MEDS ORDERED: Acetaminophen IV 1 GM/100ML 1,000 MG/100 ML BAG IV ONE (11:30)
[2022-07-09] MEDS ORDERED: Ondansetron 4 mg VIAL 2 MG/ML 2 ml VIAL ONE (11:30)
[2022-07-09] MEDS ORDERED: Dexamethasone IV 4 MG/ML VIAL 1 ml VIAL ONE (11:30)
[2022-07-09] MEDS ORDERED: Ketamine HCL 50 mg/ml 10 ml VIAL (500 MG) ONE (11:44)
[2022-07-09] MEDS ORDERED: Glycopyrrolate IV 0.2 MG/ML 1 ML VIAL ONE (11:44)
[2022-07-09] MEDS ORDERED: Phenylephrine 40 mcg/mL 10mL (400mcg) SYRINGE ONE (12:25)
[2022-07-09] MEDS ORDERED: Ondansetron ODT 4 mg TAB 4 MG TAB PO PRN (12:37)
[2022-07-09] MEDS ORDERED: Magnesium Hydroxide LIQ 30 ML UDC PO PRN (12:37)
[2022-07-09] MEDS ORDERED: Morphine 2 MG/ML SYRINGE IV PRN (12:37)
[2022-07-09] MEDS ORDERED: Ondansetron 4 mg VIAL 2 MG/ML 2 ml VIAL IV PRN (12:37)
[2022-07-09] MEDS ORDERED: Lactulose 30 ml UDC PO PRN (12:37)
[2022-07-09] MEDS ORDERED: HYDROmorphone 0.5 MG/0.5 ML SYRINGE ONE ×3 (12:37→13:59)
[2022-07-09] MEDS: fentaNYL 100 mcg/2 ml 50 MCG/ML VIAL IV PRN ×4 (15:06→15:59)
[2022-07-09] MEDS: Lactated Ringers 1000 ml BAG 1,000 ML IV SCH (17:26)
[2022-07-09] MEDS ORDERED: Albuterol HFA INHALER 8 gm MDI INH PRN (19:20)
[2022-07-09] MEDS: Magnesium Hydroxide LIQ 30 ML UDC PO SCH (19:24)
[2022-07-09] MEDS: ceFAZolin 1 GM ADVAN 1 GM in NS 0.9% 50 ML 50 ML IVPB SCH (19:25)
[2022-07-10] MEDS: Lactated Ringers 1000 ml BAG 1,000 ML IV SCH (03:18)
[2022-07-10] MEDS: ceFAZolin 1 GM ADVAN 1 GM in NS 0.9% 50 ML 50 ML IVPB SCH ×2 (03:22→12:33)
[2022-07-10 06:16] LABS: Hematocrit 28.8 % (35-45); Hemoglobin 9.8 g/dL (11.5-14.3); Mean Platelet Volume 7.8 fL (7.5-11.2); Platelet Count 193 10^3/uL (150-450)
[2022-07-10 06:55] LABS: Calcium 8.7 mg/dL (8.6-10.3); Creatinine, Serum 0.41 mg/dL (0.51-0.95); Potassium 4.5 mmol/L (3.5-5.0); eGFR CKD-EPI 112.6 (>60)
[2022-07-10] MEDS: Magnesium Hydroxide LIQ 30 ML UDC PO SCH (07:58)
[2022-07-10] MEDS ORDERED: Vitamin THERAPEUTIC TAB PO SCH (09:00)
[2022-07-10 11:10] VITALS: BP 111/56
== END 2022-07-10 13:30 | disposition home or self-care (01) ==
LOC: INTOOBSV 06:54 → AA 06:54 → SSU 17:00
PROVIDERS: ADMIT Orthopaedic Surgery Adult Reconstructive Orthopaedic Surgery; ATTEND Orthopaedic Surgery Adult Reconstructive Orthopaedic Surgery